=== PATIENT | male | born 2000 | race Caucasian/White ===

== ENCOUNTER 2023-11-02 18:41 | Emergency (ER) | payer MEDICAID ==
[~2023-11-02] VITALS: Ht 170.2 cm; Wt 79.0 kg
[2023-11-02 18:52] VITALS: BP 121/74; PULSE 85; RESP 18; TEMP 98.1; O2SAT 100
[2023-11-02 20:20] VITALS: BP 121/74; PULSE 85; RESP 18; TEMP 98.1; O2SAT 100
== END 2023-11-02 20:20 | disposition left against medical advice (07) ==
LOC: MED 18:41
DX: R06.6 Hiccough (principal); Z53.21 Procedure and treatment not carried out due to patient leaving prior to being seen by health care provider